=== PATIENT | male | born 1950 | race Caucasian/White ===

== ENCOUNTER 2021-06-07 17:49 | Inpatient (IN) ==
[2021-06-07] MEDS ORDERED: Furosemide 40 MG/4 ML VIAL IVP ONE (18:04)
[2021-06-07 18:22] LABS: Basophils % 0.4 %; Eosinophils # 0.2 K/mcL (0.0-0.6); Eosinophils % 1.8 %; Hematocrit 40.7 % (37.5-50.1); Hemoglobin 11.3 g/dL (12.9-16.9); Immature Granulocytes % 0.2 % (0-4); Lymphocytes # 1.9 K/mcL (0.6-4.6); Lymphocytes % 19.7 %; Mean Corpuscular HGB Conc 27.8 g/dL (31.6-35.5); Mean Corpuscular Hemoglobin 21.9 pg (28.0-33.3); Mean Corpuscular Volume 78.9 fL (83.0-100.0); Mean Platelet Volume 8.7 fL (9.4-12.4); Monocytes # 1.1 K/mcL (0.0-1.3); Monocytes % 11.7 %; Neutrophils # 6.5 K/mcL (1.6-8.9); Platelet Count 398 K/mcL (140-400); Red Blood Count 5.16 M/mcL (4.19-5.50); Red Cell Distribution Width 16.2 % (11.5-14.5); Segmented Neutrophils % 66.2 %; White Blood Count 9.8 K/mcL (4.3-11.1)
[2021-06-07 18:34] LABS: Hypochromasia Present (Not Present); Platelet Estimate Normal (Normal)
[2021-06-07 18:35] LABS: BUN/Creatinine Ratio 14 (6-26); Blood Urea Nitrogen 16 mg/dL (8-23); Calcium 8.8 mg/dL (8.6-10.3); Carbon Dioxide 36 mEq/L (23-29); Chloride 93 mEq/L (98-107); Glucose 121 mg/dL (70-105); Osmolality,Calculated 284 (280-300); Potassium 4.2 mEq/L (3.5-5.1); Sodium 136 mEq/L (136-145); eGFR For African Americans > 60 (> 60); eGFR For Non-African Americans > 60 (> 60)
[2021-06-07 18:39] LABS: Troponin I < 0.03 ng/mL (< 0.04)
[2021-06-07 20:22] LABS: Bilirubin,Urine Negative (Negative); Blood,Urine Negative (Negative); Clarity,Urine Slightly Cloudy (Clear); Glucose,Urine (UA) Normal (Normal); Ketones,Urine Negative (Negative); Leukocyte Esterase,Urine Small (Negative); Nitrite,Urine Negative (Negative); Protein,Urine Negative (Neg-Trace); Specific Gravity,Urine 1.015 (1.010-1.025); Urobilinogen,Urine Normal (Normal)
[2021-06-07 20:25] LABS: Color,Urine Yellow (Yellow)
[2021-06-07 20:26] LABS: Amorphous Sediment,Urine Few per hpf (None-Few); Bacteria,Urine Few per hpf (None-Few); Hyaline Casts,Urine Few per lpf (None Seen)
[2021-06-07] MEDS ORDERED: *HR* Promethazine 25 MG/ML VIAL IM PRN (21:56)
[2021-06-07] MEDS ORDERED: 0.9 % Sodium Chloride 1,000 ML IVC SCH (21:56)
[2021-06-07] MEDS ORDERED: Ondansetron ODT 4 MG TAB.RAPDIS SL PRN (21:56)
[2021-06-07] MEDS ORDERED: Naloxone 0.4 MG/ML INJ IVP PRN (21:56)
[2021-06-07] MEDS: Sucralfate 1 GM TABLET PO SCH (23:19)
[2021-06-07] MEDS: MethylPREDNISolone 40 MG/ML VIAL IVP SCH (23:41)
[2021-06-08] MEDS: Ipratropium/Albuterol Neb 3 ML IH SCH ×8 (00:58→23:55)
[2021-06-08 04:51] LABS: Basophils % 0.2 %; Hemoglobin 10.5 g/dL (12.9-16.9); Immature Granulocytes % 0.2 % (0-4); Lymphocytes # 0.3 K/mcL (0.6-4.6); Lymphocytes % 5.1 %; Mean Corpuscular HGB Conc 28.4 g/dL (31.6-35.5); Mean Corpuscular Volume 77.6 fL (83.0-100.0); Mean Platelet Volume 9.1 fL (9.4-12.4); Monocytes % 0.4 %; Neutrophils # 5.4 K/mcL (1.6-8.9); Platelet Count 364 K/mcL (140-400); Red Blood Count 4.77 M/mcL (4.19-5.50); Red Cell Distribution Width 16.1 % (11.5-14.5); Segmented Neutrophils % 94.1 %; White Blood Count 5.7 K/mcL (4.3-11.1)
[2021-06-08 04:58] LABS: Hypochromasia Present (Not Present); Platelet Estimate Normal (Normal)
[2021-06-08 05:05] LABS: BUN/Creatinine Ratio 20 (6-26); Blood Urea Nitrogen 19 mg/dL (8-23); Calcium 8.7 mg/dL (8.6-10.3); Carbon Dioxide 37 mEq/L (23-29); Chloride 92 mEq/L (98-107); Glucose 145 mg/dL (70-105); Osmolality,Calculated 291 (280-300); Potassium 4.1 mEq/L (3.5-5.1); Sodium 138 mEq/L (136-145); eGFR For African Americans > 60 (> 60); eGFR For Non-African Americans > 60 (> 60)
[2021-06-08] MEDS ORDERED: MethylPREDNISolone 40 MG/ML VIAL IVP SCH (07:00)
[2021-06-08] MEDS: DilTIAZem CD (24hr) 180 MG CAP.ER.24H PO SCH (07:50)
[2021-06-08] MEDS: Aspirin 81 MG TAB.CHEW PO SCH (07:50)
[2021-06-08] MEDS: Sucralfate 1 GM TABLET PO SCH ×4 (07:51→20:33)
[2021-06-08] MEDS: *HR* Rivaroxaban 10 MG TABLET PO SCH (07:51)
[2021-06-08] MEDS: *HR* Metformin 500 MG TABLET PO SCH ×2 (07:51→20:33)
[2021-06-08] MEDS: MethylPREDNISolone 40 MG/ML VIAL IVP SCH ×2 (07:52→20:32)
[2021-06-08] MEDS: Budesonide/Formoterol 80/4.5 1 PUFF INH IH SCH ×2 (08:05→20:45)
[2021-06-08] MEDS ORDERED: Triamterene/HCTZ 75/50 mg TABLET PO SCH (09:00)
[2021-06-08] MEDS ORDERED: Furosemide 40 MG TABLET PO SCH (09:00)
[2021-06-08] MEDS ORDERED: Perflutren Lipid Microsphere 1.3 ML in 0.9 % Sodium Chloride 8.7 ML IVP PRN (10:03)
[2021-06-08] MEDS: cefTRIAXone 1,000 MG in Water for inj. (sterile) 10 ML IVP SCH (11:35)
[2021-06-08] MEDS: Furosemide 40 MG/4 ML VIAL IVP SCH ×2 (11:45→17:36)
[2021-06-09] MEDS: Ipratropium/Albuterol Neb 3 ML IH SCH ×5 (04:00→22:11)
[2021-06-09 04:48] LABS: Hematocrit 36.3 % (37.5-50.1); Hemoglobin 10.3 g/dL (12.9-16.9); Mean Corpuscular HGB Conc 28.4 g/dL (31.6-35.5); Mean Corpuscular Hemoglobin 22.2 pg (28.0-33.3); Mean Corpuscular Volume 78.2 fL (83.0-100.0); Platelet Count 389 K/mcL (140-400); Red Blood Count 4.64 M/mcL (4.19-5.50); Red Cell Distribution Width 16.2 % (11.5-14.5); White Blood Count 9.5 K/mcL (4.3-11.1)
[2021-06-09 05:15] LABS: Alanine Aminotransferase 17 Units/L (7-52); Albumin 3.7 g/dL (3.5-5.7); Albumin/Globulin Ratio 1.1 (1.1-2.2); Alkaline Phosphatase 78 Units/L (34-104); Aspartate Amino Transferase 14 Units/L (13-39); BUN/Creatinine Ratio 20 (6-26); Bilirubin,Total 0.5 mg/dL (0.3-1.0); Blood Urea Nitrogen 27 mg/dL (8-23); Calcium 9.5 mg/dL (8.6-10.3); Carbon Dioxide 43 mEq/L (23-29); Chloride 90 mEq/L (98-107); Globulin 3.3 g/dL (2.4-3.5); Glucose 173 mg/dL (70-105); Magnesium 1.5 mg/dL (1.6-2.6); Osmolality,Calculated 299 (280-300); Sodium 140 mEq/L (136-145); eGFR For African Americans > 60 (> 60); eGFR For Non-African Americans 52 (> 60)
[2021-06-09] MEDS: Sucralfate 1 GM TABLET PO SCH ×4 (05:20→22:09)
[2021-06-09] MEDS: Budesonide/Formoterol 80/4.5 1 PUFF INH IH SCH ×2 (07:17→22:10)
[2021-06-09] MEDS: MethylPREDNISolone 40 MG/ML VIAL IVP SCH ×2 (09:43→22:10)
[2021-06-09] MEDS: DilTIAZem CD (24hr) 180 MG CAP.ER.24H PO SCH (09:44)
[2021-06-09] MEDS: Aspirin 81 MG TAB.CHEW PO SCH (09:45)
[2021-06-09] MEDS: *HR* Rivaroxaban 10 MG TABLET PO SCH (09:45)
[2021-06-09] MEDS: *HR* Metformin 500 MG TABLET PO SCH ×2 (09:46→22:08)
[2021-06-09] MEDS: Furosemide 40 MG/4 ML VIAL IVP SCH (09:55)
[2021-06-09] MEDS: cefTRIAXone 1,000 MG in Water for inj. (sterile) 10 ML IVP SCH (09:57)
[2021-06-09] MEDS: acetaZOLAMIDE 250 MG TABLET PO SCH (09:58)
[2021-06-09 12:07] LABS: Estimated Average Glucose 151 mg/dl; Hemoglobin A1C 6.9 %
[2021-06-09] MEDS: Magnesium Oxide 400 MG TABLET PO SCH (13:59)
[2021-06-10] MEDS: Sucralfate 1 GM TABLET PO SCH ×4 (05:33→21:52)
[2021-06-10] MEDS: acetaZOLAMIDE 250 MG TABLET PO SCH ×2 (07:49→21:52)
[2021-06-10] MEDS: *HR* Metformin 500 MG TABLET PO SCH ×2 (07:49→21:52)
[2021-06-10] MEDS: DilTIAZem CD (24hr) 180 MG CAP.ER.24H PO SCH (07:49)
[2021-06-10] MEDS: Magnesium Oxide 400 MG TABLET PO SCH (07:49)
[2021-06-10] MEDS: *HR* Rivaroxaban 10 MG TABLET PO SCH (07:49)
[2021-06-10] MEDS: MethylPREDNISolone 40 MG/ML VIAL IVP SCH ×2 (07:50→21:53)
[2021-06-10] MEDS: cefTRIAXone 1,000 MG in Water for inj. (sterile) 10 ML IVP SCH (07:50)
[2021-06-10] MEDS: Aspirin 81 MG TAB.CHEW PO SCH (07:50)
[2021-06-10 09:44] LABS: Hematocrit 36.6 % (37.5-50.1); Mean Corpuscular HGB Conc 27.3 g/dL (31.6-35.5); Mean Corpuscular Hemoglobin 21.8 pg (28.0-33.3); Mean Corpuscular Volume 79.9 fL (83.0-100.0); Mean Platelet Volume 8.9 fL (9.4-12.4); Platelet Count 432 K/mcL (140-400); Red Blood Count 4.58 M/mcL (4.19-5.50); Red Cell Distribution Width 16.4 % (11.5-14.5); White Blood Count 14.2 K/mcL (4.3-11.1)
[2021-06-10 10:31] LABS: BUN/Creatinine Ratio 31 (6-26); Blood Urea Nitrogen 30 mg/dL (8-23); Calcium 9.9 mg/dL (8.6-10.3); Carbon Dioxide 45 mEq/L (23-29); Chloride 91 mEq/L (98-107); Glucose 190 mg/dL (70-105); Osmolality,Calculated 297 (280-300); Potassium 5.2 mEq/L (3.5-5.1); Sodium 138 mEq/L (136-145); eGFR For African Americans > 60 (> 60); eGFR For Non-African Americans > 60 (> 60)
[2021-06-10] MEDS: Budesonide/Formoterol 80/4.5 1 PUFF INH IH SCH ×2 (10:42→19:46)
[2021-06-10] MEDS: Ipratropium/Albuterol Neb 3 ML IH SCH ×4 (10:49→23:52)
[2021-06-11] MEDS: Ipratropium/Albuterol Neb 3 ML IH SCH ×6 (04:31→23:37)
[2021-06-11] MEDS: Sucralfate 1 GM TABLET PO SCH ×4 (05:54→23:52)
[2021-06-11 08:00] LABS: BUN/Creatinine Ratio 33 (6-26); Blood Urea Nitrogen 33 mg/dL (8-23); Calcium 9.8 mg/dL (8.6-10.3); Carbon Dioxide 42 mEq/L (23-29); Chloride 95 mEq/L (98-107); Glucose 182 mg/dL (70-105); Osmolality,Calculated 302 (280-300); Potassium 4.3 mEq/L (3.5-5.1); Sodium 140 mEq/L (136-145); eGFR For African Americans > 60 (> 60); eGFR For Non-African Americans > 60 (> 60)
[2021-06-11] MEDS: DilTIAZem CD (24hr) 180 MG CAP.ER.24H PO SCH (08:33)
[2021-06-11] MEDS: *HR* Metformin 500 MG TABLET PO SCH ×2 (08:33→23:51)
[2021-06-11] MEDS: Magnesium Oxide 400 MG TABLET PO SCH (08:33)
[2021-06-11] MEDS: *HR* Rivaroxaban 10 MG TABLET PO SCH (08:34)
[2021-06-11] MEDS: Aspirin 81 MG TAB.CHEW PO SCH (08:34)
[2021-06-11] MEDS: acetaZOLAMIDE 250 MG TABLET PO SCH ×2 (08:35→23:51)
[2021-06-11] MEDS: MethylPREDNISolone 40 MG/ML VIAL IVP SCH (08:37)
[2021-06-11] MEDS: cefTRIAXone 1,000 MG in Water for inj. (sterile) 10 ML IVP SCH (08:37)
[2021-06-11] MEDS ORDERED: Furosemide 40 MG TABLET PO SCH ×2 (09:00)
[2021-06-11] MEDS: Budesonide/Formoterol 80/4.5 1 PUFF INH IH SCH ×2 (09:26→20:19)
[2021-06-11] MEDS: predniSONE 20 MG TABLET PO SCH (16:54)
[2021-06-11] MEDS: Furosemide 40 MG TABLET PO SCH (16:54)
[2021-06-11] MEDS: Cefdinir 300 MG CAPSULE PO SCH (23:51)
[2021-06-12] MEDS: Ipratropium/Albuterol Neb 3 ML IH SCH ×2 (03:45→06:49)
[2021-06-12 07:33] VITALS: BP 113/66; PULSE 84; RESP 14; TEMP 98.6; O2SAT 97
[2021-06-12] MEDS: acetaZOLAMIDE 250 MG TABLET PO SCH (10:52)
[2021-06-12] MEDS: Sucralfate 1 GM TABLET PO SCH ×2 (10:52→10:59)
[2021-06-12] MEDS: predniSONE 20 MG TABLET PO SCH (10:52)
[2021-06-12] MEDS: Magnesium Oxide 400 MG TABLET PO SCH (10:53)
[2021-06-12] MEDS: *HR* Rivaroxaban 10 MG TABLET PO SCH (10:53)
[2021-06-12] MEDS: *HR* Metformin 500 MG TABLET PO SCH (10:53)
[2021-06-12] MEDS: Furosemide 40 MG TABLET PO SCH (10:53)
[2021-06-12] MEDS: Aspirin 81 MG TAB.CHEW PO SCH (10:53)
[2021-06-12] MEDS: DilTIAZem CD (24hr) 180 MG CAP.ER.24H PO SCH (10:53)
[2021-06-12] MEDS: Cefdinir 300 MG CAPSULE PO SCH (10:54)
== END 2021-06-12 12:15 | disposition home health service (06) | DRG 194 ==
LOC: EMEROOGRE 17:49 → INPGRE 17:49
PROVIDERS: ADMIT Internal Medicine; ATTEND Internal Medicine